=== PATIENT | male | born 1995 | race Caucasian/White ===

== ENCOUNTER 2016-10-17 23:14 | Emergency (ER) | payer OTHER ==
[2016-10-17] MEDS ORDERED: ONDANSETRON 4 MG/2 ML VIAL ONE (23:17)
--- NOTE | 2016-10-17 23:17 | EDPHY ---
H & P HPI/ROS: HPI CHIEF COMPLAINT: Alcohol Intoxication HISTORY OF PRESENT ILLNESS: This patient very pleasant 20-year-old male, significant past medical history for depression migraine headaches presents emergency room by EMS with acute alcohol intoxication. Patient tells me that he drank a large amount of box wine this evening. This then causing the nausea vomiting. Denies any other ingestion. Does state that he smoked marijuana. Past Medical History: Migraine headaches, depression Past Surgical History: No recent surgical history Social History: Just graduated from [employer] occasional alcohol use, occasional marijuana Family History: Noncontributory ROS REVIEW OF SYSTEMS: A comprehensive 10 point review of systems is otherwise negative aside from elements mentioned in the history of present illness. Exam Constitutional Intoxicated, triage nursing summary reviewed, vital signs reviewed, Sleepy, smells of alcohol Eyes normal conjunctivae and sclera, horizontal beating nystagmus consistent acute alcohol intoxication, otherwise pupils equal and react to light HENT normal inspection, atraumatic, moist mucus membranes, no epistaxis, neck supple/ no meningismus, no raccoon eyes. Respiratory clear to auscultation bilaterally, normal breath sounds, no respiratory distress, no wheezing. Cardiovascular rate normal, regular rhythm, no murmur, no edema, distal pulses normal. Gastrointestinal soft, non-tender, no rebound, no guarding, normal bowel sounds, no distension, no pulsatile mass. Genitourinary no CVA tenderness. Musculoskeletal no midline vertebral tenderness, full range of motion, no calf swelling, no tenderness of extremities, no meningismus, good pulses, neurovascularly intact. Skin pink, warm, & dry, no rash, skin atraumatic. Neurologic sleepy, intoxicated with alcohol,, alert and oriented x 3, AAOx3, moves all 4 extremities equally, motor intact, sensory intact, CN II-XII intact , , normal vision, normal speech. Psychiatric normal mood/affect. Heme/Lymph/Immune no lymphadenopathy. Differential Diagnosis: Includes but is not limited to in a particular order acute alcohol intoxication, alcohol abuse, dehydration, electrolyte abnormality , nausea vomiting from acute alcohol intoxication Medical Decision Making: Patient here with active vomiting, after drinking large amount of wine box to wine, patient will have an IV established received IV fluid bolus IV Zofran for nausea vomiting. Check alcohol level. Re-evaluation: 2340: Breath alcohol 106. 1221AM: This patient is now ambulatory. Clinically sober. Stable gait. Not vomiting. He is requesting a ride home from 1 of his friends. Will allow him to be discharged given how sober he is now. Source: Patient, EMS - Medical/Surgical History Hx Asthma: No Hx Chronic Respiratory Disease: No Hx Diabetes: No Hx Cardiac Disease: No Hx Renal Disease: No Hx Cirrhosis: No Hx Alcoholism: No Hx HIV/AIDS: No Hx Splenectomy or Spleen Trauma: No Other PMH: medical Migraine. surgery left broken arm, eye surgery, wisdom teeth extraction. - Social History Smoking Status: Never smoked Constitutional: Initial Vital Signs Temperature (C) 36.6 C 10/17/16 23:15 Heart Rate 69 10/17/16 23:15 Respiratory Rate 17 10/17/16 23:15 Blood Pressure 123/74 H 10/17/16 23:15 O2 Sat (%) 98 10/17/16 23:15 O2 Delivery Mode Room Air Allergies/Adverse Reactions: No Known Allergies Allergy (Unverified 04/08/14 18:42) Home Medications: Medication Instructions Recorded Aspirin [Aspirin 81mg (OTC)] 81 mg PO DAILY 04/08/14 [place] Allergy 10/17/16 Propranolol HCl 10/17/16 Zoloft 100mg (*) 10/17/16 Medical Decision Making - Data Points Medications Given: Discontinued Medications Sodium Chloride (Ns) 1,000 mls @ 0 mls/hr IV ONCE ONE PRN Reason: Wide Open Stop: 10/17/16 23:20 Last Admin: 10/17/16 23:23 Dose: 1,000 mls Ondansetron HCl (Zofran) 4 mg IVP EDNOW ONE Stop: 10/17/16 23:20 Last Admin: 10/17/16 23:21 Dose: 4 mg Departure - Departure Disposition: Home, Routine, Self-Care Clinical Impression: Alcoholic intoxication Qualifiers: Complication of substance-induced condition: uncomplicated Qualified Code(s): F10.120 - Alcohol abuse with intoxication, uncomplicated Condition: Good Instructions: Alcohol Intoxication (ED) Referrals: Patient,NotPresent [Primary Care Provider] - As per Instructions
[2016-10-17] MEDS ORDERED: NS 1,000 ML IV ONE (23:19)
[2016-10-17] MEDS ORDERED: ONDANSETRON 4 MG/2 ML VIAL IVP ONE (23:19)
[2016-10-18 01:06] VITALS: BP 119/61; PULSE 99; RESP 18; TEMP 97.5; O2SAT 97
== END 2016-10-18 01:06 | disposition home or self-care (01) ==
LOC: EDUNIT#
DX: F10.120 Alcohol abuse with intoxication, uncomplicated (principal); Z79.82 Long term (current) use of aspirin
CPT/HCPCS: 96374; J2405